=== PATIENT | female | born 1990 | race Caucasian/White ===

== ENCOUNTER → 2017-02-05 | Outpatient (CLI) | payer BC ==
[~2017-02-05] MED LIST: IBUP-1542 PO
--- NOTE | 2017-02-05 08:31 | RADRPT ---
PROCEDURE: Abdominal Ultrasound (right upper quadrant). CLINICAL INDICATION: Abdominal pain TECHNIQUE: Multiple real-time longitudinal and transverse images of the right upper quadrant of th e abdomen were acquired utilizing a curved array transducer. Images were reviewed on a high-resoluti on PACS workstation. COMPARISON: None FINDINGS: The liver is normal in size and echogenicity. No focal masses are identified. There is no evidenc e of intra or extrahepatic ductal dilatation. The common bile duct measures 3.5 mm in diameter. No gallstones or gallbladder wall thickening is seen. The visualized portions of the pancreas are unremarkable with obscuration of the tail of the pancrea s. No free fluid is identified. There is no evidence of right hydronephrosis or renal calcification. The right kidney measures 10.0 cm in length. The visualized portions of the aorta and inferior vena cava are within normal limits. IMPRESSION: 1. Unremarkable right upper quadrant ultrasound. RPTAT: KK .Naun Jordan MD, MD Date Time Electronically viewed and signed by .Naun Jordan MD, MD on 02/05/2017 08:31 .B/
[2017-02-05 08:54] LABS: ADD SCAN DIFF NO
[2017-02-05 09:21] LABS: BASOPHIL # 0.1 10^3/ul (0.0-0.1); BASOPHILS % 0.9 % (0.0-2.0); EOSINOPHILS # 0.1 10^3/ul (0.0-0.5); EOSINOPHILS % 1.2 % (0.0-7.0); HEMATOCRIT 42.2 % (37.0-47.0); HEMOGLOBIN 14.2 g/dl (12.0-16.0); LYMPHOCYTES % 14.7 % (15.0-51.0); MEAN CORPUSCULAR HEMOGLOBIN 31.8 pg (29.0-33.0); MEAN CORPUSCULAR HGB CONC 33.6 g/dl (32.0-37.0); MEAN CORPUSCULAR VOLUME 94.4 fl (82.0-101.0); MEAN PLATELET VOLUME 9.7 fl (7.4-10.4); MONOCYTE # 0.4 10^3/ul (0.3-0.9); MONOCYTES % 6.1 % (0.0-11.0); NEUTROPHIL # 5.3 10^3/ul (1.6-7.5); PLATELET COUNT 213 10^3/UL (140-415); RED BLOOD COUNT 4.47 10^6/ul (4.20-5.40); RED CELL DISTRIBUTION WIDTH 12.4 % (11.5-14.5); WHITE BLOOD COUNT 6.9 10^3/ul (4.8-10.8)
[2017-02-05 09:26] LABS: ADD UMIC YES; UR ASCORBIC ACID NEGATIVE (NEGATIVE); UR BILIRUBIN (Dip) NEGATIVE (NEGATIVE); UR BLOOD (Dip) NEGATIVE (NEGATIVE); UR CLARITY SLIGHTLY CLOUDY (CLEAR); UR COLOR AMBER (YELLOW); UR GLUCOSE (Dip) NEGATIVE (NEGATIVE); UR KETONES (Dip) NEGATIVE (NEGATIVE); UR LEUKOCYTE ESTERASE (Dip) 2+ Leu/ul (NEGATIVE); UR MUCUS MANY /HPF (NONE SEEN); UR NITRITE (Dip) NEGATIVE (NEGATIVE); UR RBC 1 /HPF (0-5); UR SQUAMOUS EPITHELIAL CELL MODERATE /HPF (FEW); UR TOTAL PROTEIN (Dip) 1+ mg/dl (NEGATIVE); UR UROBILINOGEN (Dip) NEGATIVE (NEGATIVE)
[2017-02-05 09:40] LABS: ALBUMIN 4.8 g/dl (3.3-4.9); ALBUMIN/GLOBULIN RATIO 1.33; BILIRUBIN,INDIRECT 1.1 mg/dl (0-1.1); BILIRUBIN,TOTAL 1.1 mg/dl (0.2-1.3); CALCIUM 10.1 mg/dl (8.4-10.2); CREATININE 0.74 mg/dl (0.44-1.00); POTASSIUM 4.5 mmol/L (3.5-5.1); TOTAL PROTEIN 8.4 g/dl (6.1-8.1)
--- NOTE | 2017-02-05 14:38 | RADRPT ---
PROCEDURE: US Pelvis. CLINICAL INDICATION: Pelvic pain. TECHNIQUE: The pelvis was evaluated with transabdominal and transvaginal sonography in the axial a nd sagittal planes. COMPARISON: No prior study is available for comparison. FINDINGS: Uterus: 7.4 x 2.9 x 4.0 cm. Endometrium: 4.5 mm. Right ovary: 3.0 x 2.3 x 1.9 cm. Left ovary: 3.9 x 2.4 x 2.3 cm. Uterine masses: None. Ovarian masses: There is a benign-appearing left ovarian cyst measuring 2.2 x 1.7 x 1.8 cm. There a re no internal echoes or septations. Color Doppler and pulsed Doppler sonography demonstrate normal flow to the ovaries. Other pelvic masses: None. Free fluid: None. IMPRESSION: 1. Benign left ovarian cyst measuring up to 2.2 cm. No further evaluation required. 2. Otherwise normal pelvic ultrasound. RPTAT: QQ .Andrea Cartagena MD, Date Time Electronically viewed and signed by .Andrea Cartagena MD, on 02/05/2017 14:38 .R/
== END | disposition home or self-care (01) ==
LOC: U/S 07:49
PROVIDERS: ATTEND Internal Medicine
DX: R10.9 Unspecified abdominal pain (principal); N39.0 Urinary tract infection, site not specified; K80.20 Calculus of gallbladder without cholecystitis without obstruction; N83.209 Unspecified ovarian cyst, unspecified side
CPT/HCPCS: 76705; 76830; 76856; 80053; 81001; 82150; 83690; 85025; 87086

== ENCOUNTER → 2017-02-11 | Outpatient (CLI) | payer BC | END | disposition home or self-care (01) | LOC: LAB 09:51 | PROVIDERS: ATTEND Internal Medicine | DX: N91.2 Amenorrhea, unspecified (principal) | CPT/HCPCS: 84702 ==

== ENCOUNTER → 2017-02-17 | Outpatient (CLI) | payer BC ==
[~2017-02-17] MED LIST changes: +IOHEXOL 300MG/ML 150 ML BTL ONE; +SOD CHLORIDE 0.9% 100 ML ONE
--- NOTE | 2017-02-17 21:09 | RADRPT ---
PROCEDURE: CT Abdomen and Pelvis with contrast. CLINICAL INDICATION: Abdomen and pelvis pain. TECHNIQUE: CT scan of the abdomen and pelvis with contrast was performed. The patient was scanned following the uncomplicated intravenous administration of 95 cc of Omnipaque-300. Coronal and sagit nae reformatted images were obtained from the axial source images. Images were reviewed on a [employer] PACS workstation. Total exam DLP is 311.28 mGy-cm. CTDIvol is 5.72 mGy. One or more of t he following dose reduction techniques were used: Automated exposure control, adjustment of the mA a nd/or kV according to patient size, use of iterative reconstruction technique. COMPARISON: Noncontrast CT scan of the abdomen and pelvis dated 06/28/2014. Ultrasound of the rig ht upper quadrant of the abdomen dated 02/05/2017. Pelvic ultrasound dated 02/05/2017. FINDINGS: The lung bases are normal. There is no pleural effusion. The liver is normal in size and attenuation. There is no focal hepatic lesion. The gallbladder and bile ducts are normal. The spleen is normal in size. There is no focal splenic lesion. Both adrenals are normal with no enlargement or mass. The pancreas is unremarkable with no mass or evidence of pancreatitis. Both kidneys demonstrate normal contrast enhancement. There is no renal mass or hydronephrosis. The abdominal aorta is not dilated. There is no retroperitoneal lymphadenopathy or mass. There is no pelvic lymphadenopathy or mass. The bladder and distal ureters are normal. The periappendiceal region is unremarkable with no evidence of appendicitis. The bowel and mesentery are normal. There is no free air. A small amount of free fluid is present in the pelvis. The osseous structures are unremarkable with no fracture or lytic lesion. IMPRESSION: 1. Small amount of free fluid in the pelvis, likely physiologic. 2. Otherwise unremarkable CT scan of the abdomen and pelvis. RPTAT: QQ .Andrea Cartagena MD, MD Date Time Electronically viewed and signed by .Andrea Cartagena MD, on 02/17/2017 21:09 .R/
== END | disposition home or self-care (01) ==
LOC: C/S 07:56
PROVIDERS: ATTEND Internal Medicine
DX: R10.9 Unspecified abdominal pain (principal); R10.2 Pelvic and perineal pain
CPT/HCPCS: 74177; Q9967

== ENCOUNTER → 2017-05-25 | Outpatient (CLI) | payer BC ==
[~2017-05-25] MED LIST changes: -IOHEXOL 300MG/ML 150 ML BTL ONE; -SOD CHLORIDE 0.9% 100 ML ONE
--- NOTE | 2017-05-25 17:21 | RADRPT ---
PROCEDURE: US Pelvis. CLINICAL INDICATION: History of left ovarian cyst. TECHNIQUE: The pelvis was evaluated with transabdominal and transvaginal sonography in the axial a nd sagittal planes. COMPARISON: Pelvic ultrasound dated 02/05/2017 which demonstrated a 2.2 cm benign left ovarian cys t. FINDINGS: Uterus: 7.6 x 3.1 x 3.6 cm. Endometrium: 1.2 mm. Right ovary: 4.0 x 2.2 x 2.7 cm. Left ovary: 3.1 x 2.3 x 2.4 cm. Uterine masses: None. Ovarian masses: None. Color Doppler and pulsed Doppler sonography demonstrate normal flow to the ova nat. Other pelvic masses: None. Free fluid: None. IMPRESSION: 1. Normal pelvic ultrasound. RPTAT: QQ .Andrea Cartagena MD, Date Time Electronically viewed and signed by .Andrea Cartagena MD, on 05/25/2017 16:47 .R/
== END | disposition home or self-care (01) ==
LOC: LAB 12:09
PROVIDERS: ATTEND Internal Medicine
DX: N39.0 Urinary tract infection, site not specified (principal); N83.202 Unspecified ovarian cyst, left side
CPT/HCPCS: 76830; 76856; 80053; 81003; 82150; 85025; 87086

== ENCOUNTER 2017-08-13 07:30 | Day surgery (SDC) | END 2017-08-13 10:18 | disposition home or self-care (01) ==